=== PATIENT | female | born 1945 | race Caucasian/White ===

== ENCOUNTER 2018-12-05 15:11 | Observation (INO) ==
[2018-12-05] MEDS ORDERED: DILTIAZEM 50 MG/10 ML VIAL IV STA (17:36)
[2018-12-05 17:37] LABS: Basophils % 0.5 % (0.0-0.8); Eosinophils # 0.1 10*3/uL (0.0-0.87); Eosinophils % 1.1 % (0.00-10.9); Hematocrit 44.7 VOL% (35.7-47.0); Hemoglobin 14.4 GM/DL (12.0-16.0); Immature Granulocytes % 0.5 %; Immature Granulocytes Absolute 0.04 #; Lymphocytes # 2.6 10*3/uL (1.4-4.0); Lymphocytes % 31.1 % (21.3-54.2); Mean Corpuscular HGB Conc 32.2 GM/DL (32-36); Mean Corpuscular Volume 93.1 FL (87-102); Mean Platelet Volume 11.8 FL (9.6-12.0); Monocytes % 10.1 % (1.7-12.7); Neutrophils % 56.7 % (38.7-73.9); Platelet Count 212 T/CUMM (130-400); Red Cell Distribution Width 12.3 % (9.3-17.3); White Blood Count 8.4 T/CUMM (4-12)
[2018-12-05] MEDS ORDERED: dilTIAZem Drip 125 MG/125 ML PREMIX IV ONE (17:47)
[2018-12-05] MEDS ORDERED: dilTIAZem Drip 125 MG/125 ML PREMIX IV SCH (18:00)
[2018-12-05 18:15] LABS: Calcium 9.7 MG/DL (8.5-10.1); Thyroid Stimulating Hormone 2.29 uIU/ml (0.358-3.74)
[2018-12-05] MEDS ORDERED: ONDANSETRON 4 MG/2 ML VIAL IV PRN (20:28)
[2018-12-05] MEDS ORDERED: BISACODYL 5 MG TABLET PO PRN (20:28)
[2018-12-05] MEDS ORDERED: NICOTINE 21 MG/24 HR PATCH TRANSDERM PRN (20:28)
[2018-12-05] MEDS ORDERED: ACETAMINOPHEN 325 MG TABLET PO PRN (20:28)
[2018-12-05] MEDS ORDERED: diphenhydrAMINE CAP 25 MG CAPSULE PO PRN (20:28)
[2018-12-05] MEDS ORDERED: CHOLESTYRAMINE 4 GM PACK PO PRN ×2 (20:31→22:48)
[2018-12-05] MEDS ORDERED: SIMVASTATIN 40 MG TABLET PO SCH ×2 (21:00→22:48)
[2018-12-05] MEDS ORDERED: SERTRALINE 50 MG TABLET PO SCH ×2 (21:00→22:48)
[2018-12-05 21:18] LABS: Risk Ratio 2.69; VLDL CHOLESTEROL 47.6 MG/DL
[2018-12-05] MEDS ORDERED: METOPROLOL TARTRATE 50 MG TABLET PO SCH (22:48)
[2018-12-05] MEDS ORDERED: APIXABAN 5 MG TABLET PO SCH (22:48)
[2018-12-05] MEDS: METOPROLOL TARTRATE 50 MG TABLET PO SCH (23:01)
[2018-12-05] MEDS: APIXABAN 5 MG TABLET PO SCH (23:01)
[2018-12-06 01:07] LABS: Basophils # 0.1 10*3/uL (0.0-0.2); Basophils % 0.6 % (0.0-0.8); Eosinophils # 0.1 10*3/uL (0.0-0.87); Eosinophils % 1.1 % (0.00-10.9); Hematocrit 43.8 VOL% (35.7-47.0); Hemoglobin 14.1 GM/DL (12.0-16.0); Immature Granulocytes % 0.4 %; Immature Granulocytes Absolute 0.03 #; Lymphocytes # 2.8 10*3/uL (1.4-4.0); Mean Corpuscular HGB Conc 32.2 GM/DL (32-36); Mean Platelet Volume 12.2 FL (9.6-12.0); Neutrophils % 52.9 % (38.7-73.9); Platelet Count 209 T/CUMM (130-400); Red Blood Count 4.71 MC/CUMM (3.8-5.5); Red Cell Distribution Width 12.2 % (9.3-17.3); White Blood Count 8.2 T/CUMM (4-12)
[2018-12-06 01:27] LABS: Albumin 4.2 G/DL (3.4-5.0); Bilirubin,Total 0.7 MG/DL (0.2-1.0); Calcium 9.6 MG/DL (8.5-10.1); Total Protein 7.8 G/DL (6.4-8.3)
[2018-12-06] MEDS ORDERED: CHOLESTYRAMINE 4 GM PACK PO PRN (01:56)
[2018-12-06] MEDS ORDERED: LEVOTHYROXINE 75 MCG TABLET PO SCH ×2 (06:30→09:00)
[2018-12-06 08:10] VITALS: BP 137/65
[2018-12-06] MEDS: METOPROLOL TARTRATE 50 MG TABLET PO SCH (08:53)
[2018-12-06] MEDS: APIXABAN 5 MG TABLET PO SCH (08:53)
[2018-12-06] MEDS ORDERED: PANTOPRAZOLE 40 MG TABLET PO SCH (09:00)
== END 2018-12-06 12:28 | disposition home or self-care (01) ==
LOC: N.EDINP 15:11 → N.ED 15:11 → SUATTDRO 20:28 → N.TELES 21:15
PROVIDERS: ADMIT Internal Medicine; ATTEND Internal Medicine